=== PATIENT | female | born 1955 | race Caucasian/White ===

== ENCOUNTER 2020-11-11 11:00 | Outpatient (RCR) | payer MEDICARE, OTHER, SELFPAY ==
--- NOTE | 2020-09-12 16:00 | PT.OPPOC ---
Physical, Occupational & Speech Therapy At [facility] Current Diagnoses Mixed incontinence (09/12/20) Rectocele (09/12/20) Nocturia (09/12/20) Visit Care Team Role Provider Type Bertha Rehman MD Primary Care Provider Non-Staff Specialty: Internal Medicine Address: [address] [place] [address], [phone] Email: Other Providers Specialty: Address: Phone: Fax: Email: Maxine Singletary MD Attending Provider Non-Staff Referring Provider Specialty: Urology Address: [address] [place] [address], [phone] Email: Plan Of Care PT-OP-T Assessment and Plan Start: 09/12/20 07:39 Freq: Status: Active Protocol: Document 09/12/20 12:45 AMB (Rec: 09/16/20 07:59 AMB [email or web address]) Physical Therapy Assessment Rehab Potential Rehabilitation Potential Good Evaluation Complexity Number of Personal Factors/Comorbidities 3 or More Number of Body Systems Impaired 1-2 Clinical Presentation at Evaluation Stable Impairments Impairments Functional Activities,Strength Goals Three Impairment nocturia Short Term Goal (STG) Margaret will be void once per night or less. STG Duration 4 weeks Two Impairment urgency Cement Loader Goal (LTG) Margaret will use urge suppression techniques to go into a bathroom without urgency. LTG Duration 8 weeks One Impairment strength Short Term Goal (STG) Margaret will improve her pelvic floor strength so that she can maintain a 10 second contraction in standing. STG Duration 4 weeks Cement Loader Goal (LTG) Margaret will improve her pelvic floor strength Assessment Summary Assessment Margaret attends physical therapy with improving nocturia after reducing caffeine and evening fluid, but continuing urgency. She does have mild prolapse. Her biggest trigger is seeing a bathroom. She will benefit from physical therapy to instruct her in pelvic floor strengthening and urgency reduction training. Physical Therapy Plan Frequency and Duration Frequency of Treatment 1x/Week Duration of Treatment 8 weeks Plan of Care Start Date 09/12/20 Plan of Care End Date 11/07/20 Therapeutic Interventions Therapeutic Interventions Home Exercise Program,Manual Therapy,Neuromuscular Re- education,Self-Care/Home Management,Therapeutic Activities,Therapeutic Exercises Modalities Biofeedback,Electric Stimulation Next Visit Focus/Plan Next Note Type Treatment Note Next Visit Plan sEMG, educate in urge reduction Plan of Care Dates Plan of Care Start Date 09/12/20 Plan of Care End Date 11/07/20 Electronically Signed by: Carolyn Hutton, PT 09/16/20 0759 Please Sign and Return: I have reviewed this Plan of Care and certify that the skilled therapy services above are required to meet the patient?s needs. Physician Signature Date Printed Name and Credentials Clinical Instructor Signature Printed Name and Credentials
--- NOTE | 2020-09-12 16:00 | PT.OIE ---
Current Diagnoses Mixed incontinence (09/12/20) Rectocele (09/12/20) Nocturia (09/12/20) Visit Care Team Role Provider Type Bertha Rehman MD Primary Care Provider Non-Staff Specialty: Internal Medicine Address: [facility] [address] [place] [address], [id number] Email: Other Providers Specialty: Address: Phone: Fax: Email: Maxine Singletary MD Attending Provider Non-Staff Referring Provider Specialty: Urology Address: [address] [place] [address], [phone] Email: Physical Therapy Initial Evaluation PT-OP-A Visit Information Start: 09/12/20 07:39 Freq: Status: Active Protocol: Document 09/12/20 12:45 AMB (Rec: 09/12/20 16:27 AMB [email or web address]) Out-Patient Physical Therapy Visit Information Visit Information Visit Type Initial Evaluation Visit Start Time 12:45 Visit Stop Time 13:30 Total Visit Minutes 45 Visit Number 1 PT-OP-B Current Condition Start: 09/12/20 07:39 Freq: Status: Active Protocol: Document 09/12/20 12:45 AMB (Rec: 09/12/20 13:10 AMB [id number]) Current Condition History of Current Condition Onset Date 2 years Current Complaints nocturia, urgency History of Current Condition 2x/night getting up at night, was doing 4x/night. Urgency, urinating every 2 hours. Triggered when walking into bathroom. Small leaks with stress incontinence. Difficulty emptying bladder but post void residual was normal. 3 UTIs in the last year. Not sexually active and that does bother her. 2 children c-sections, extended pushing with the first. Does have a little prolapse. Naturally a bit constipated because of pain meds, but has it mangaged now. Treatment Goals Patient/Caregiver Goals Reduced urgency. Irritation when trying to hold it. Prior Functional Status Baseline Function- ADL's Independent Baseline Function- Mobility Independent Current Functional Impairments (Reported) Functional Limitations- ADL's Urgency, urinary frequency Personal Factors Other Personal Factors That May Effect Cervical fusion history, A fib Therapy/Recovery , Depression, fibromyalgia PT-OP-C Subjective Start: 09/12/20 07:39 Freq: Status: Active Protocol: Document 09/12/20 13:30 AMB (Rec: 09/14/20 11:41 AMB [email or web address]) Patient Questionnaires Pelvic Pain and Urgency/Frequency Patient Symptom Scale Pelvic Pain Score 10 PT-OP-I Pelvic Floor Start: 09/12/20 07:39 Freq: Status: Active Protocol: Document 09/12/20 13:30 AMB (Rec: 09/14/20 11:41 AMB [email or web address]) Pelvic Floor Assessment Urine Pelvic Floor Surgery No Urinary Symptoms Urge Sensation,Hesitancy, Incomplete Emptying Leakage Size Small Leakage Cause Sneeze Leaks Per Day 1/month Voiding Frequency 8/day Nocturia 2-3 Urine Pad Type Panty Liner Bowel Bowel Surgery No Prolapse Cystocele Grade 2 Rectocele Grade 1 Perineal Descent Resting Absent Bearing Present Contraction Ability Voluntary Contraction Moderate Voluntary Relaxation Moderate Manual Muscle Testing Left 3 Manual Muscle Testing Right 3 Manual Muscle Testing Anterior 3 Manual Muscle Testing Posterior 3 Muscle Endurance (Seconds) 4 Number of Quick Contractions In 10 4 Seconds PT-OP-T Assessment and Plan Start: 09/12/20 07:39 Freq: Status: Active Protocol: Document 09/12/20 12:45 AMB (Rec: 09/16/20 07:59 AMB [email or web address]) Physical Therapy Assessment Rehab Potential Rehabilitation Potential Good Evaluation Complexity Number of Personal Factors/Comorbidities 3 or More Number of Body Systems Impaired 1-2 Clinical Presentation at Evaluation Stable Impairments Impairments Functional Activities,Strength Goals Three Impairment nocturia Short Term Goal (STG) Margaret will be void once per night or less. STG Duration 4 weeks Two Impairment urgency Coating Mixer Tender Goal (LTG) Margaret will use urge suppression techniques to go into a bathroom without urgency. LTG Duration 8 weeks One Impairment strength Short Term Goal (STG) Margaret will improve her pelvic floor strength so that she can maintain a 10 second contraction in standing. STG Duration 4 weeks Intermediate Goal (LTG) Margaret will improve her pelvic floor strength Assessment Summary Assessment Margaret attends physical therapy with improving nocturia after reducing caffeine and evening fluid, but continuing urgency. She does have mild prolapse. Her biggest trigger is seeing a bathroom. She will benefit from physical therapy to instruct her in pelvic floor strengthening and urgency reduction training. Physical Therapy Plan Frequency and Duration Frequency of Treatment 1x/Week Duration of Treatment 8 weeks Plan of Care Start Date 09/12/20 Plan of Care End Date 11/07/20 Therapeutic Interventions Therapeutic Interventions Home Exercise Program,Manual Therapy,Neuromuscular Re- education,Self-Care/Home Management,Therapeutic Activities,Therapeutic Exercises Modalities Biofeedback,Electric Stimulation Next Visit Focus/Plan Next Note Type Treatment Note Next Visit Plan sEMG, educate in urge reduction
--- NOTE | 2020-10-28 15:56 | PT.OTN ---
Current Diagnoses Mixed incontinence (10/28/20) Rectocele (10/28/20) Nocturia (10/28/20) Physical Therapy Treatment Note PT-OP-A Visit Information Start: 09/12/20 07:39 Freq: Status: Active Protocol: Document 10/28/20 14:23 AMB (Rec: 10/28/20 15:00 AMB [id number]) Out-Patient Physical Therapy Visit Information Visit Information Visit Type Treatment Note PT-OP-B Current Condition Start: 09/12/20 07:39 Freq: Status: Active Protocol: Document 09/12/20 12:45 AMB (Rec: 09/12/20 13:10 AMB [id number]) Current Condition History of Current Condition Onset Date 2 years Current Complaints nocturia, urgency History of Current Condition 2x/night getting up at night, was doing 4x/night. Urgency, urinating every 2 hours. Triggered when walking into bathroom. Small leaks with stress incontinence. Difficulty emptying bladder but post void residual was normal. 3 UTIs in the last year. Not sexually active and that does bother her. 2 children c-sections, extended pushing with the first. Does have a little prolapse. Naturally a bit constipated because of pain meds, but has it mangaged now. Treatment Goals Patient/Caregiver Goals Reduced urgency. Irritation when trying to hold it. Prior Functional Status Baseline Function- ADL's Independent Baseline Function- Mobility Independent Current Functional Impairments (Reported) Functional Limitations- ADL's Urgency, urinary frequency Personal Factors Other Personal Factors That May Effect Cervical fusion history, A fib Therapy/Recovery , Depression, fibromyalgia PT-OP-C Subjective Start: 09/12/20 07:39 Freq: Status: Active Protocol: Document 10/28/20 14:15 AMB (Rec: 10/28/20 15:46 AMB [email or web address]) OP-PT Subjective Patient Comments Patient Comments Pt states she did have a leak earlier today. Getting up 2x/ night now. Still has urgency when sees the toilet. PT-OP-I Pelvic Floor Start: 09/12/20 07:39 Freq: Status: Active Protocol: Document 09/12/20 13:30 AMB (Rec: 09/14/20 11:41 AMB [email or web address]) Pelvic Floor Assessment Urine Pelvic Floor Surgery No Urinary Symptoms Urge Sensation,Hesitancy, Incomplete Emptying Leakage Size Small Leakage Cause Sneeze Leaks Per Day 1/month Voiding Frequency 8/day Nocturia 2-3 Urine Pad Type Panty Liner Bowel Bowel Surgery No Prolapse Cystocele Grade 2 Rectocele Grade 1 Perineal Descent Resting Absent Bearing Present Contraction Ability Voluntary Contraction Moderate Voluntary Relaxation Moderate Manual Muscle Testing Left 3 Manual Muscle Testing Right 3 Manual Muscle Testing Anterior 3 Manual Muscle Testing Posterior 3 Muscle Endurance (Seconds) 4 Number of Quick Contractions In 10 4 Seconds PT-OP-Q Treatments Start: 09/12/20 07:39 Freq: Status: Active Protocol: Document 10/28/20 14:15 AMB (Rec: 10/28/20 15:46 AMB [email or web address]) Neuro Re-Education Treatment Other Activities sEMG Comments Avg 12, max 29, has difficulty holding contraction but better control of lift with cueing today PT-OP-T Assessment and Plan Start: 09/12/20 07:39 Freq: Status: Active Protocol: Document 10/28/20 14:23 AMB (Rec: 10/28/20 15:00 AMB [id number]) Physical Therapy Assessment Goals Three Impairment nocturia Short Term Goal (STG) Margaret will be void once per night or less. STG Duration 4 weeks Two Impairment urgency Community Health Specialist Goal (LTG) Margaret will use urge suppression techniques to go into a bathroom without urgency. LTG Duration 8 weeks One Impairment strength Short Term Goal (STG) Margaret will improve her pelvic floor strength so that she can maintain a 10 second contraction in standing. STG Duration 4 weeks Snf Goal (LTG) Margaret will improve her pelvic floor strength Assessment Summary Assessment Margaret was able to contract her pelvic floor muscles with the sEMG and have better lift with levator ani, but continues to have urgency when she sees the toilet. Physical Therapy Plan Next Visit Focus/Plan Next Note Type Treatment Note Next Visit Plan sEMG, educate in urge reduction
--- NOTE | 2020-11-11 13:20 | PT.OTN ---
Current Diagnoses Mixed incontinence (11/11/20) Rectocele (11/11/20) Nocturia (11/11/20) Physical Therapy Treatment Note PT-OP-A Visit Information Start: 09/12/20 07:39 Freq: Status: Active Protocol: Document 11/11/20 11:00 AMB (Rec: 11/11/20 13:16 AMB [email or web address]) Out-Patient Physical Therapy Visit Information Visit Information Visit Type Treatment Note Visit Start Time 11:00 Visit Stop Time 11:45 Total Visit Minutes 45 Visit Number 3 PT-OP-B Current Condition Start: 09/12/20 07:39 Freq: Status: Active Protocol: Document 09/12/20 12:45 AMB (Rec: 09/12/20 13:10 AMB [id number]) Current Condition History of Current Condition Onset Date 2 years Current Complaints nocturia, urgency History of Current Condition 2x/night getting up at night, was doing 4x/night. Urgency, urinating every 2 hours. Triggered when walking into bathroom. Small leaks with stress incontinence. Difficulty emptying bladder but post void residual was normal. 3 UTIs in the last year. Not sexually active and that does bother her. 2 children c-sections, extended pushing with the first. Does have a little prolapse. Naturally a bit constipated because of pain meds, but has it mangaged now. Treatment Goals Patient/Caregiver Goals Reduced urgency. Irritation when trying to hold it. Prior Functional Status Baseline Function- ADL's Independent Baseline Function- Mobility Independent Current Functional Impairments (Reported) Functional Limitations- ADL's Urgency, urinary frequency Personal Factors Other Personal Factors That May Effect Cervical fusion history, A fib Therapy/Recovery , Depression, fibromyalgia PT-OP-C Subjective Start: 09/12/20 07:39 Freq: Status: Active Protocol: Document 11/11/20 11:00 AMB (Rec: 11/11/20 13:16 AMB [email or web address]) OP-PT Subjective Patient Comments Patient Comments Pt reports she has not had any leaks. She is still getting up at night, but does have to take a diuretic before bed time and thinks that has a lot to do with it. Urgency is better but still there. PT-OP-I Pelvic Floor Start: 09/12/20 07:39 Freq: Status: Active Protocol: Document 09/12/20 13:30 AMB (Rec: 09/14/20 11:41 AMB [email or web address]) Pelvic Floor Assessment Urine Pelvic Floor Surgery No Urinary Symptoms Urge Sensation,Hesitancy, Incomplete Emptying Leakage Size Small Leakage Cause Sneeze Leaks Per Day 1/month Voiding Frequency 8/day Nocturia 2-3 Urine Pad Type Panty Liner Bowel Bowel Surgery No Prolapse Cystocele Grade 2 Rectocele Grade 1 Perineal Descent Resting Absent Bearing Present Contraction Ability Voluntary Contraction Moderate Voluntary Relaxation Moderate Manual Muscle Testing Left 3 Manual Muscle Testing Right 3 Manual Muscle Testing Anterior 3 Manual Muscle Testing Posterior 3 Muscle Endurance (Seconds) 4 Number of Quick Contractions In 10 4 Seconds PT-OP-Q Treatments Start: 09/12/20 07:39 Freq: Status: Active Protocol: Document 11/11/20 11:00 AMB (Rec: 11/11/20 11:37 AMB [id number]) Therapeutic Exercises Sitting Exercises 1 Sitting Exercise Name roll in roll out Resistance #2 band Comments 10 ea Other Exercises 1 Other Exercise Name contract pelvic floor while moving from sit to stand Comments challenging PT-OP-T Assessment and Plan Start: 09/12/20 07:39 Freq: Status: Active Protocol: Document 11/11/20 11:00 AMB (Rec: 11/11/20 11:37 AMB [id number]) Physical Therapy Assessment Goals Three Impairment nocturia Short Term Goal (STG) Margaret will be void once per night or less. STG Duration 2x/night- diurectics Two Impairment urgency Care Home Goal (LTG) Margaret will use urge suppression techniques to go into a bathroom without urgency. LTG Duration PROGRESS MADE One Impairment strength Short Term Goal (STG) Margaret will improve her pelvic floor strength so that she can maintain a 10 second contraction in standing. STG Duration MET Care Home Goal (LTG) Margaret will improve her pelvic floor strength LTG Duration MET Assessment Summary Assessment Margaret has improved in that she is no longer leaking, but is having some urgency and nocturia, which she attributes to her diuretic usage. She has been instructed in a HEP which should help her continue to improve her pelvic floor strength. Physical Therapy Plan Frequency and Duration Frequency of Treatment 1x/Week Duration of Treatment 1 week Plan of Care Start Date 11/11/20 Plan of Care End Date 11/18/20 Therapeutic Interventions Therapeutic Interventions Home Exercise Program,Manual Therapy,Neuromuscular Re- education,Self-Care/Home Management,Therapeutic Activities,Therapeutic Exercises Modalities Biofeedback,Electric Stimulation Discharge Physical Therapy Discharge Reasons Patient Request Discharge Comments Pt feels like she is ready to discharge
--- NOTE | 2020-11-11 13:20 | PT.OPPOC ---
Physical, Occupational & Speech Therapy At [facility] Current Diagnoses Mixed incontinence (11/11/20) Rectocele (11/11/20) Nocturia (11/11/20) Visit Care Team Role Provider Type Bertha Rehman MD Primary Care Provider Non-Staff Specialty: Internal Medicine Address: [address] [place] [address], [phone] Email: Other Providers Specialty: Address: Phone: Fax: Email: Maxine Singletary MD Attending Provider Non-Staff Referring Provider Specialty: Urology Address: [address] [place] [address], [id number] Email: Plan Of Care PT-OP-T Assessment and Plan Start: 09/12/20 07:39 Freq: Status: Active Protocol: Document 11/11/20 11:00 AMB (Rec: 11/11/20 11:37 AMB [id number]) Physical Therapy Assessment Goals Three Impairment nocturia Short Term Goal (STG) Margaret will be void once per night or less. STG Duration 2x/night- diurectics Two Impairment urgency Senior Living Goal (LTG) Margaret will use urge suppression techniques to go into a bathroom without urgency. LTG Duration PROGRESS MADE One Impairment strength Short Term Goal (STG) Margaret will improve her pelvic floor strength so that she can maintain a 10 second contraction in standing. STG Duration MET Senior Living Goal (LTG) Margaret will improve her pelvic floor strength LTG Duration MET Assessment Summary Assessment Margaret has improved in that she is no longer leaking, but is having some urgency and nocturia, which she attributes to her diuretic usage. She has been instructed in a HEP which should help her continue to improve her pelvic floor strength. Physical Therapy Plan Frequency and Duration Frequency of Treatment 1x/Week Duration of Treatment 1 week Plan of Care Start Date 11/11/20 Plan of Care End Date 11/18/20 Therapeutic Interventions Therapeutic Interventions Home Exercise Program,Manual Therapy,Neuromuscular Re- education,Self-Care/Home Management,Therapeutic Activities,Therapeutic Exercises Modalities Biofeedback,Electric Stimulation Discharge Physical Therapy Discharge Reasons Patient Request Discharge Comments Pt feels like she is ready to discharge Plan of Care Dates Plan of Care Start Date 11/11/20 Plan of Care End Date 11/18/20 Electronically Signed by: Carolyn Hutton, PT 11/11/20 1320 Please Sign and Return: I have reviewed this Plan of Care and certify that the skilled therapy services above are required to meet the patient?s needs. Physician Signature Date Printed Name and Credentials Clinical Instructor Signature Printed Name and Credentials
== END 2020-11-11 15:54 | disposition home or self-care (01) ==
LOC: PHYS 11:00
PROVIDERS: PCP Internal Medicine; Referring Provider Urology; Visit Provider Urology
DX: R35.1 Nocturia (principal); N39.46 Mixed incontinence; N81.6 Rectocele
CPT/HCPCS: 97110; 97112; 97162

== ENCOUNTER 2021-08-18 11:48 | Emergency (ER) | payer MEDICARE, OTHER, SELFPAY ==
[2021-08-18 12:06] VITALS: BP 121/56; PULSE 60; RESP 16; TEMP 36.4; O2SAT 100; BMI 32.8
--- NOTE | 2021-08-18 12:18 | DI.US.S_ITS ---
PROCEDURE: US ARTERIAL DUPLEX LE LT INDICATIONS: LEFT CARDIAC ABLATION 6 DAYS AGO; NEW GROIN LUMP TECHNIQUE: Color and pulse Doppler interrogation was performed of the left groin with image documentation. COMPARISON: None. FINDINGS: There are no abnormal fluid collections in the left groin to suggest hematoma or pseudoaneurysm. Mild edema overlies the previous catheterization site. IMPRESSION: No sonographic evidence for hematoma or pseudoaneurysm status post left common femoral arterial catheterization. Dictated by: Gricelda Hoang M.D. on 08/18/2021 at 13:46 Approved by: Gricelda Hoang M.D. on 08/18/2021 at 13:47
[2021-08-18 15:03] VITALS: O2SAT 99
[2021-08-18 15:04] VITALS: BP 128/60; PULSE 60; TEMP 36.9; O2SAT 100
--- NOTE | 2021-08-18 16:10 | ED.GENADULT ---
HPI - General Adult <Erika Mar PA-C - Last Filed: 08/18/21 16:23> General Chief complaint: Extremity Injury, Upper Stated complaint: States lump on groin post ablasion- pos hematoma Time Seen by Provider: 08/18/21 15:44 Mode of arrival: Ambulatory History of Present Illness HPI narrative: 66-year-old female presents to the ED with a left-sided groin lump for 1 week. Patient had a cardiac ablation procedure groin, following which she had a lot of bleeding and bruising when they nicked an artery. Patient states that she is able to feel a mildly painful lump at the site of the catheterization in her left groin. Patient denies redness, warmth, discharge at the site. Patient denies fever, chills, chest pain, shortness of breath. Patient's reading specialist sent her to the ED to obtain an ultrasound to ensure that there is no active bleeding. Related Data Home Medications Medication Instructions Recorded Confirmed abatacept (with maltose) [Orencia IV 04/08/21 06/18/21 (with maltose)] apixaban 5 mg tablet (Eliquis) 5 mg PO BID 04/08/21 06/18/21 brexpiprazole 2 mg tablet (Rexulti) 2 mg PO DAILY 04/08/21 06/18/21 bumetanide 1 mg tablet 1 mg PO TID tab 04/08/21 06/18/21 diclofenac sodium 1 % topical gel 2 g TOPICAL QID 04/08/21 06/18/21 escitalopram oxalate 10 mg tablet 20 mg PO DAILY tab 04/08/21 06/18/21 famotidine 40 mg tablet 40 mg PO BEDTIME 04/08/21 06/18/21 fluticasone propionate 50 1 spray INTRANASAL BID 04/08/21 06/18/21 mcg/actuation nasal spray,suspension folic acid 1 mg tablet 2 mg PO DAILY 04/08/21 06/18/21 hydrocortisone acetate 25 mg 25 mg AR BID 04/08/21 06/18/21 rectal suppository hydroxyzine pamoate 25 mg capsule 25 mg PO ONCE PRN cap 04/08/21 06/18/21 hyoscyamine sulfate 0.375 mg 0.375 mg PO Q12H 04/08/21 06/18/21 tablet,extended release,12 hr levothyroxine 88 mcg capsule 88 mcg PO DAILY 04/08/21 06/18/21 magnesium oxide 400 mg PO DAILY 04/08/21 06/18/21 methotrexate sodium 2.5 mg tablet 17.5 mg PO QWEEK tab 04/08/21 06/18/21 metoprolol succinate 25 mg 12.5 mg PO BID 04/08/21 06/18/21 tablet,extended release 24 hr mirabegron 25 mg tablet,extended 25 mg PO DAILY 04/08/21 06/18/21 release 24 hr morphine 15 mg immediate release 15 mg PO Q6H PRN 04/08/21 06/18/21 tablet naloxone 4 mg/actuation nasal 4 mg INTRANASAL ONCE PRN ea 04/08/21 06/18/21 spray (Narcan) olopatadine 0.1 % eye drops drp OPHTHALMIC (EYE) 04/08/21 06/18/21 omeprazole 20 mg capsule,delayed 20 mg PO DAILY 04/08/21 06/18/21 release ondansetron HCl 4 mg tablet 4 mg PO Q8H 04/08/21 06/18/21 pregabalin 150 mg capsule 150 mg PO BID 04/08/21 06/18/21 riboflavin (vitamin B2) 400 mg 400 mg PO DAILY 04/08/21 06/18/21 tablet spironolactone 25 mg tablet 25 mg PO BID 04/08/21 06/18/21 tizanidine 4 mg tablet 4 mg PO Q8H PRN 04/08/21 06/18/21 topiramate 25 mg tablet (Topamax) 25 mg PO DAILY 04/08/21 06/18/21 Previous Rx's Medication Instructions Recorded CMP Testosterone Cream 2% 0.5 g TOPICAL DAILY #30 g 04/03/21 estradiol (Estrace) 1 g VAGINAL QWEEK PRN #42.5 g 04/03/21 estradiol 10 mcg vaginal tablet 10 mcg VAGINAL 3XW #36 tab 04/03/21 (Yuvafem) Allergies Allergy/AdvReac Type Severity Reaction Status Date / Time codeine Allergy Nausea Verified 08/18/21 12:11 hydromorphone [From Dilaudid] Allergy ITCHING Verified 08/18/21 12:11 adhesive tape AdvReac Intermediate skin Verified 06/18/21 10:39 irritation Review of Systems <Hyma LÓPEZ Mar - Last Filed: 08/18/21 16:23> Review of Systems ROS Unobtainable: All systems reviewed & are unremarkable except as noted in HPI and below Constitutional Constitutional: Denies chills, Denies fatigue, Denies fever(s), Denies frequent falls, Denies lethargy and Denies weakness Eyes Eyes: Denies change in vision, Denies eye discharge, Denies irritation and Denies loss of vision ENT Ears, Nose, Mouth, and Throat: Denies change in voice, Denies dizziness, Denies neck pain, Denies sore throat and Denies throat swelling Cardiovascular Cardiovascular: Denies chest pain, Denies irregular heart rhythm, Denies lightheadedness, Denies palpitations, Denies dyspnea, Denies dyspnea on exertion and Denies orthopnea Respiratory Respiratory: Denies cough, Denies dyspnea, Denies dyspnea on exertion and Denies wheezing Gastrointestinal Gastrointestinal: Denies abdominal pain, Denies change in bowel habits, Denies diarrhea, Denies nausea and Denies vomiting Genitourinary Genitourinary: Denies hematuria, Denies flank pain, Denies urinary incontinence and Denies urinary urgency Musculoskeletal Musculoskeletal: Denies back pain, Denies muscle weakness, Denies neck pain, Denies numbness and Denies tingling Integumentary/Breasts Skin/Breast: Denies pruritus, Denies erythema, Denies rash, Reports unusual bruising and Denies wounds Comments: Left groin lump, extensive bruising around the area of the catheterization Neurologic Neurologic: Denies behavioral changes, Denies confusion, Denies dizziness, Denies frequent falls, Denies loss of vision, Denies numbness, Denies tingling and Denies weakness Psychiatric Psychiatric: Denies anxiety, Denies behavioral changes, Denies confusion, Denies depression, Denies homicidal ideation and Denies suicidal ideation Endocrine Endocrine: Denies fatigue, Denies flushing and Denies palpitations Hematologic/Lymphatic Hematologic/Lymphatic: Denies easy bruising Allergic/Immunologic Allergic/Immunologic: Denies urticaria, Denies throat swelling and Denies wheezing Patient History <Erika Mar PA-C - Last Filed: 08/18/21 16:23> Medical History ADHD (~2001) Ankle pain (~1997) Anxiety (~2001) Atrial fibrillation (~2014) Carpal tunnel syndrome (~2013) Cataracts, bilateral (~2014) Cervical spine disease (~2008) Chicken pox Chronic back pain (~1996) Depression Diastolic heart failure (~2014) Fibromyalgia (~1996) Fractures (~1997) Glaucoma (~2020) Headache Heavy menstrual period (~1970) Hypothyroidism (~2005) Irregular menstrual cycle (~1969) Irritable bowel syndrome (~1972) Lumbar disc disease (~1996) Measles Migraines Mumps OAB (overactive bladder) (~2020) Osteoarthritis (~1996) Ovarian cyst (~1974) Painful menstrual periods (~1970) Rheumatoid arthritis (~2020) Rubella Shoulder pain (~2008) Sleep apnea (~2004) Surgical History Anesthesia Foreign body (~12/23/15) History of ankle fusion (~2012) History of ankle fusion (~01/11/13) History of ankle surgery (~12/1997) History of arthroscopic knee surgery (~2008) History of arthroscopic knee surgery (~09/16/16) History of arthroscopy of shoulder (~2008) History of cardiac catheterization (~09/11/15) History of cataract removal with insertion of prosthetic lens History of section (~1982) History of cholecystectomy (~1988) History of colonoscopy (~08/29/20) History of diagnostic ultrasound (~11/06/15) History of endoscopy (~11/06/15) History of endoscopy (~01/11/17) History of eye surgery (~2014) History of laparoscopy History of surgery (~2012) History of surgery (~1987) S/P cervical spinal fusion (~2009) Family History Father Hypertension Stroke Mother History of heart disease Sister Hypertension Grandfather Stroke Social History Smoking Status: Never smoker Smoking Status: Never smoker Substance Use Type: does not use Exam <Erika Mar PA-C - Last Filed: 08/18/21 16:23> Initial Vital Signs Initial Vital Signs: Vital Signs Temperature 97.6 F 08/18/21 12:06 Pulse Rate 60 08/18/21 12:06 Respiratory Rate 16 08/18/21 12:06 Blood Pressure 121/56 L 08/18/21 12:06 Pulse Oximetry 100 08/18/21 12:06 Const General: cooperative, healthy appearing and comfortable HENMT Head: normal to inspection Eyes General: Yes appearance normal, both eyes and all related structures Resp Effort & Inspection: normal respiratory effort Auscultation: clear to auscultation bilaterally Cardio Rate: regular rate Rhythm: regular rhythm Skin Other: Extensive bruising noted around the site of the prior catheterization. Palpable lump in the left groin at the site of the catheterization. No signs of infection including redness, discharge, warmth. Mildly tender to palpation. Neuro General: patient alert, patient awake and patient oriented x3 Psych Appearance: grossly normal Mental Status: mental status grossly normal <Clary Pickard MD - Last Filed: 08/19/21 07:24> Initial Vital Signs Initial Vital Signs: Vital Signs Temperature 97.6 F 08/18/21 12:06 Pulse Rate 60 08/18/21 12:06 Respiratory Rate 16 08/18/21 12:06 Blood Pressure 121/56 L 08/18/21 12:06 Pulse Oximetry 100 08/18/21 12:06 Course <Erika Mar PA-C - Last Filed: 08/18/21 16:23> Orders Ordered: ED Orders 08/18/21 12:18 US arterial duplex LE LT Stat Vital Signs Vital signs: Vital Signs - 8 hr 08/18/21 12:06 08/18/21 15:03 08/18/21 15:04 Temperature 97.6 F 98.4 F Pulse Rate 60 60 Respiratory Rate 16 Blood Pressure 121/56 L 128/60 Pulse Oximetry 100 99 100 <Clary Pickard MD - Last Filed: 08/19/21 07:24> Orders Ordered: ED Orders 08/18/21 12:18 US arterial duplex LE LT Stat Vital Signs Vital signs: Vital Signs - 8 hr 08/18/21 12:06 08/18/21 15:03 08/18/21 15:04 Temperature 97.6 F 98.4 F Pulse Rate 60 60 Respiratory Rate 16 Blood Pressure 121/56 L 128/60 Pulse Oximetry 100 99 100 Medical Decision Making <Erika Mar PA-C - Last Filed: 08/18/21 16:23> Imaging Data Ultrasound arterial duplex left lower extremity: Radiologist's Impression: PROCEDURE:? US ARTERIAL DUPLEX LE LT ? INDICATIONS:? LEFT CARDIAC ABLATION 6 DAYS AGO; NEW GROIN LUMP ? TECHNIQUE:? Color and pulse Doppler interrogation was performed of the left groin with image documentation.? ? COMPARISON:? None. ? FINDINGS:? There are no abnormal fluid collections in the left groin to suggest hematoma or pseudoaneurysm.? Mild edema overlies the previous catheterization site. ? IMPRESSION:? No sonographic evidence for hematoma or pseudoaneurysm status post left common femoral arterial catheterization. ? Dictated by: Gricelda Hoang M.D. on 08/18/2021 at 13:46 ? ? Approved by: Gricelda Hoang M.D. on 08/18/2021 at 13:47 ? MDM Narrative Medical decision making narrative: 66-year-old female presents to the ED with a left-sided groin lump for 1 week. Concern for arterial bleed versus hematoma versus pseudoaneurysm versus infection. Ultrasound arterial shows no active bleeding, pseudoaneurysm, hematoma. It does show mild edema around the area of the prior catheterization. Physical exam does not show signs of infection. Patient has a appointment with her reading specialist in 4 days that she agrees to keep. Discussed applying warmth and Tylenol for symptoms. ED return precautions discussed with patient. Patient verbalizes understanding. Discharge Plan Departure Patient Disposition: Home Clinical Impression: Lump in the groin Instructions: DI for Peripherally Inserted Central Catheter Removal Activity Restrictions/Additional Instructions: You were evaluated in the ED for a swelling in the left groin after a cardiac ablation procedure. Your arterial duplex ultrasound shows no active bleeding, hematoma or pseudoaneurysm. The ultrasound does visualize some swelling overlying the catheterizations site. Her physical exam did not show any signs of infection. May continue to use warmth, Tylenol for your symptoms. Please keep the appointment you have with your reading specialist in 4 days. Return to the ED if you notice any signs of infection including redness, discharge, warmth, worsening swelling. Prescriptions: No Action CMP Testosterone Cream 2% 0.5 g topical DAILY Qty: 30 3RF Rx Instructions: Apply dime to nickel sized amount to inner thigh daily, rotating sites. estradiol [Yuvafem] 10 mcg tablet 10 mcg vaginal 3XW Qty: 36 3RF Rx Instructions: 1 tab intravaginal 3x/week estradiol [Estrace] 0.01 % (0.1 mg/gram) cream 1 g vaginal QWEEK PRN (Reason: atrophy) Qty: 42.5 3RF Rx Instructions: Apply small amount to external genitalia daily bumetanide 1 mg tablet 1 mg PO TID 0RF diclofenac sodium 1 % gel 2 g topical QID 0RF Rx Instructions: apply to single elbow, wrist or hand; for hand includes palm/fingers/back of hand Eliquis 5 mg tablet 5 mg PO BID 0RF escitalopram oxalate 10 mg tablet 20 mg PO DAILY 0RF famotidine 40 mg tablet 40 mg PO BEDTIME 0RF fluticasone propionate 50 mcg/actuation spray,suspension 1 spray intranasal BID 0RF Rx Instructions: administer into each nostril folic acid 1 mg tablet 2 mg PO DAILY 0RF hydrocortisone acetate 25 mg suppository 25 mg AR BID 0RF hydroxyzine pamoate 25 mg capsule 25 mg PO ONCE PRN0RF hyoscyamine sulfate 0.375 mg tablet extended release 12 hr 0.375 mg PO Q12H 0RF levothyroxine 88 mcg capsule 88 mcg PO DAILY 0RF magnesium oxide 400 mg magnesium tablet 400 mg PO DAILY 0RF methotrexate sodium 2.5 mg tablet 17.5 mg PO QWEEK 0RF metoprolol succinate 25 mg tablet extended release 24 hr 12.5 mg PO BID 0RF mirabegron 25 mg tablet extended release 24 hr 25 mg PO DAILY 0RF morphine 15 mg tablet 15 mg PO Q6H PRN0RF Narcan 4 mg/actuation spray,non-aerosol 4 mg intranasal ONCE PRN0RF Rx Instructions: spray 1 dose into ONE nostril; alternate nostrils w each dose until help arrives olopatadine 0.1 % drops ophthalmic (eye) 0RF omeprazole 20 mg capsule,delayed release(DR/EC) 20 mg PO DAILY 0RF ondansetron HCl 4 mg tablet 4 mg PO Q8H 0RF abatacept (with maltose) [Orencia (with maltose)] IV 0RF pregabalin 150 mg capsule 150 mg PO BID 0RF Rexulti 2 mg tablet 2 mg PO DAILY 0RF riboflavin (vitamin B2) 400 mg tablet 400 mg PO DAILY 0RF spironolactone 25 mg tablet 25 mg PO BID 0RF tizanidine 4 mg tablet 4 mg PO Q8H PRN0RF topiramate [Topamax] 25 mg tablet 25 mg PO DAILY 0RF Referrals: Bertha Rehman MD [Primary Care Provider] - <Clary Pickard MD - Last Filed: 08/19/21 07:24> Cosign ED Attending Cosignature Attestation: I was immediately available in the department for consultation throughout this patient's visit. I agree with documentation as above. Clary Pickard MD
[2021-08-18 16:29] VITALS: BP 97/55; PULSE 58; RESP 18; O2SAT 96
== END 2021-08-18 16:30 | disposition home or self-care (01) ==
PROVIDERS: Emergency Provider Student in an Organized Health Care Education/Training Program; PCP Internal Medicine
DX: R19.09 Other intra-abdominal and pelvic swelling, mass and lump (principal)
CPT/HCPCS: 93926; 99281; 99283